=== PATIENT | male | born 1975 | race Caucasian/White ===

== ENCOUNTER 2017-03-14 22:21 | Observation (INO) ==
[2017-03-14] MEDS ORDERED: Aspirin 81 MG TAB.CHEW PO ONE (22:40)
--- NOTE | 2017-03-14 22:56 | Emergency Department Note ---
Disposition Clinical Impression: Chest pain Qualifiers: Chest pain type: precordial pain Qualified Code(s): R07.2 - Precordial pain Disposition: Left Against Medical Advice Condition: Undetermined General Adult HPI - General Chief complaint: ED Extremity Problem,Nontraumatic Stated complaint: L arm pain, chest pain earlier, now resolved Time Seen by Provider: 03/14/17 22:38 Source: patient, EMS Mode of arrival: private vehicle Limitations: no limitations Nursing Notes Reviewed: Yes Vital Signs Reviewed: Yes - History of Present Illness Pt Subjective Complaint: left arm and chest pain Onset (ago): day(s) ("Shoulder pain off and on for several days, gone now") Location: chest ("An episode of sharp mid sternal chest pain that lasted about 30-40 seconds, then just went away.") Radiation: non-radiation Pain Severity: moderate Pain Scale: 0 Quality: sharp Consistency: now resolved Improves with: nothing Worsens with: nothing Associated symptoms: Reports: denies other symptoms Treatments Prior to Arrival: none - Related Data Previous Rx's Medication Instructions Recorded OxyCODONE/APAP 5/325 [Percocet 1 each PO Q6HR PRN #20 tablet 10/16/16 5/325 MG] Allergies Allergy/AdvReac Type Severity Reaction Status Date / Time No Known Allergies Allergy Verified 07/30/16 09:04 All systems ED: reviewed and negative except as stated. Review of Systems: As Per HPI Constitutional: Denies: fever, chills Eyes: Denies: eye pain, eye discharge, vision change ENT ED: Reports: congestion ("Cold symptoms for about a week."). Denies: ear pain, throat pain Cardiovascular: Reports: as per HPI, chest pain (gone now). Denies: palpitations, dyspnea on exertion, orthopnea, edema, syncope Respiratory: Reports: cough (productive at times - for about a week), sputum production. Denies: dyspnea, wheezes, hemoptysis, stridor Gastrointestinal: Denies: abdominal pain, nausea, vomiting, diarrhea, constipation Musculoskeletal: Reports: back pain (chronic). Denies: neck pain, joint swelling, arthralgia, myalgia Integumentary: Denies: rash Neurological: Denies: headache, weakness, numbness, paresthesias, confusion Hematological/Lymphatic: Denies: easy bleeding, easy bruising, lymphadenopathy Past Medical History - Past Medical History Attestation: Yes The following information was validated with the patient. Source: patient Medical history: Reports: hypertension (not taking meds for it) Surgical history: Reports: herniorrhaphy, other Psychiatric history: Reports: anxiety - Social History Smoking Status: Current every day smoker Smokeless Tobacco Status: No Alcohol use: Reports: heavy, recent Drug use: Reports: none Physical Exam - General Limitations: no limitations General appearance: alert, in no apparent distress - Head Head exam: atraumatic, normocephalic, normal inspection - Eye Eye exam: Present: normal appearance, PERRL. Absent: scleral icterus, conjunctival injection, periorbital swelling - ENT ENT exam: mucous membranes moist - Neck Neck exam: Present: normal inspection, full ROM, trachea midline. Absent: tenderness, meningismus - Chest Chest inspection: Present: normal inspection, symmetric chest wall rise. Absent : tenderness - Respiratory Respiratory exam: Present: normal lung sounds bilaterally. Absent: respiratory distress, wheezes, stridor, accessory muscle use, prolonged expiratory phase - Cardiovascular Cardiovascular exam: Present: regular rate, normal rhythm, normal heart sounds - Abdominal Exam Abdominal exam: Present: soft, Non-Tender. Absent: distention, guarding, rigidity, mass, pulsatile mass - Extremities Exam Extremities exam: Present: normal inspection. Absent: pedal edema - Back Exam Back exam: Present: normal inspection - Neurological Exam Neurological exam: Present: alert, oriented X3, CN II-XII intact, normal gait - Psychiatric Psychiatric exam: Present: normal affect, normal mood - Skin Skin exam: Present: warm, dry, intact, normal color Course Course Narrative: Patient presents from home for evaluation of chest pain. It began while he was at rest, "smoking a cigarette". It lasted about 30-40 seconds then went away. He describes having pain in his shoulders for several days. No dyspnea, nausea, vomiting, fever, chills. He has had a cough and congestion ("cold symptoms") for about a week. He is sitting up, smiling, talking with family, very well appearing. He makes jokes about his BP only being high when he is at a hospital. He has not seen a PCP in over a decade. He has family hx of: Dad and brother of an ME - both at a young age. He has a normal exam and denies pain. He got up and ambulated to and from the restroom with no difficulties or pain. Chest pain orders are in. Aspirin has been ordered as well. EKG and CXR are normal. Labs are all normal. Patient is resting comfortably with no complaints of pain. I do not suspect PE in this patient. He has no risk factors for it, is not hypoxic or tachypneic, and he denies EDANGELO/SOB. He does not describe a pleuritic component to his chest pain. Pneumonia is also unlikely as he has no fever, no pleuritic pain and no hypoxia. Additionally, his CXR and labs are normal. Although he has risk factors for ACS, his chest pain of 30-40 second duration without exertion is atypical. His EKG and Troponin are normal. Nonetheless, he has a strong family history of ACS at a young age, is a long time smoker and has untreated HTN. His Heart Score is 3. Additionally, his family describes a "blotchy pink rash" that appeared on patient's left arm when he was experiencing the chest pain. This resolved prior to arrival and has not returned , but it caused the family great concern. For these reasons, we have recommended admission. Patient initially declined. Family was able to convince him to stay. Hospitalist paged. Hospitalist was able to return the call after an hour. He has accepted the patient. Patient learned that he would be moved to a floor bed. His children have gone home. He has decided to sign out AMA. He was given specific warnings / return precautions. His was not able to convince him to stay. She will be taking him home. Hospitalist has been updated. Vital Signs Temperature 98.3 F 03/14/17 22:23 Pulse Rate 101 03/14/17 22:23 Respiratory Rate 18 03/14/17 22:23 Blood Pressure 167/110 03/14/17 22:23 O2 Sat by Pulse Oximetry 99 03/14/17 22:23 Temperature 98.3 F 03/14/17 22:23 Pulse Rate 102 03/15/17 00:51 Respiratory Rate 16 03/15/17 00:51 Blood Pressure 131/82 03/15/17 00:51 O2 Sat by Pulse Oximetry 97 03/15/17 00:51 Oxygen Delivery Oxygen Delivery Room Air Medical Decision Making - Medical Records Medical records reviewed: Yes I reviewed the patient's medical records. - Lab Data Lab results reviewed: Yes I reviewed the patient's lab results. Lab results narrative: Laboratory Last Values WBC 8.7 K/mcL (4.3-11.1) 03/14/17 23:06 RBC 5.59 M/mcL (4.19-5.50) H 03/14/17 23:06 Hgb 16.1 g/dL (12.9-16.9) 03/14/17 23:06 Hct 48.4 % (37.5-50.1) 03/14/17 23:06 MCV 86.6 fL (83.0-100.0) 03/14/17 23:06 MCH 28.8 pg (28.0-33.3) 03/14/17 23:06 MCHC 33.3 g/dL (31.6-35.5) 03/14/17 23:06 RDW 13.2 % (11.5-14.5) 03/14/17 23:06 Plt Count 284 K/mcL (140-400) 03/14/17 23:06 MPV 9.1 fL (9.4-12.4) L 03/14/17 23:06 Immature Gran % 0.3 % (0-4) 03/14/17 23:06 Seg Neutrophils % 44.1 % 03/14/17 23:06 Lymphocytes % 40.7 % 03/14/17 23:06 Monocytes % 10.0 % 03/14/17 23:06 Eosinophils % 4.1 % 03/14/17 23:06 Basophils % 0.8 % 03/14/17 23:06 Neutrophils # 3.8 K/mcL (1.6-8.9) 03/14/17 23:06 Lymphocytes # 3.6 K/mcL (0.6-4.6) 03/14/17 23:06 Monocytes # 0.9 K/mcL (0.0-1.3) 03/14/17 23:06 Eosinophils # 0.4 K/mcL (0.0-0.6) 03/14/17 23:06 Basophils # 0.1 K/mcL (0.0-0.2) 03/14/17 23:06 Sodium 140 mEq/L (136-145) 03/14/17 23:06 Potassium 3.7 mEq/L (3.5-4.5) 03/14/17 23:06 Chloride 106 mEq/L (98-109) 03/14/17 23:06 Carbon Dioxide 24 mEq/L (19-29) 03/14/17 23:06 BUN 12 mg/dL (8-26) 03/14/17 23:06 Creatinine 0.96 mg/dL (0.72-1.25) 03/14/17 23:06 Est GFR ( Amer) > 60 (> 60) 03/14/17 23:06 Est GFR (Non-Af Amer) > 60 (> 60) 03/14/17 23:06 BUN/Creatinine Ratio 13 (6-26) 03/14/17 23:06 Glucose 99 mg/dL (70-99) 03/14/17 23:06 Calculated Osmolality 290 (280-300) 03/14/17 23:06 Calcium 9.8 mg/dL (8.6-10.8) 03/14/17 23:06 Total Bilirubin 0.4 mg/dL (0.2-1.2) 03/14/17 23:06 AST 17 Units/L (5-34) 03/14/17 23:06 ALT 19 Units/L (0-55) 03/14/17 23:06 Alkaline Phosphatase 73 Units/L (38-126) 03/14/17 23:06 Troponin I 0.00 ng/mL (0-0.03) 03/14/17 23:06 Serum Total Protein 8.1 g/dL (6.0-8.3) 03/14/17 23:06 Albumin 4.4 g/dL (3.5-5.0) 03/14/17 23:06 Globulin 3.7 g/dL (2.4-3.5) H 03/14/17 23:06 Albumin/Globulin Ratio 1.2 (1.1-2.2) 03/14/17 23:06 Lipase 16 Units/L (8-78) 03/14/17 23:06 Result diagrams: 03/14/17 23:06 03/14/17 23:06 Lab Results 03/14/17 03/14/17 03/14/17 Range/Units 23:06 23:06 23:06 WBC 8.7 (4.3-11.1) K/mcL RBC 5.59 H (4.19-5.50) M/mcL Hgb 16.1 (12.9-16.9) g/dL Hct 48.4 (37.5-50.1) % MCV 86.6 (83.0-100.0) fL MCH 28.8 (28.0-33.3) pg MCHC 33.3 (31.6-35.5) g/dL RDW 13.2 (11.5-14.5) % Plt Count 284 (140-400) K/mcL MPV 9.1 L (9.4-12.4) fL Immature Gran % 0.3 (0-4) % Seg Neutrophils % 44.1 % Lymphocytes % 40.7 % Monocytes % 10.0 % Eosinophils % 4.1 % Basophils % 0.8 % Neutrophils # 3.8 (1.6-8.9) K/mcL Lymphocytes # 3.6 (0.6-4.6) K/mcL Monocytes # 0.9 (0.0-1.3) K/mcL Eosinophils # 0.4 (0.0-0.6) K/mcL Basophils # 0.1 (0.0-0.2) K/mcL Sodium 140 (136-145) mEq/L Potassium 3.7 (3.5-4.5) mEq/L Chloride 106 (98-109) mEq/L Carbon Dioxide 24 (19-29) mEq/L BUN 12 (8-26) mg/dL Creatinine 0.96 (0.72-1.25) mg/dL Est GFR ( Amer) > 60 (> 60) Est GFR (Non-Af Amer) > 60 (> 60) BUN/Creatinine Ratio 13 (6-26) Glucose 99 (70-99) mg/dL Calculated Osmolality 290 (280-300) Calcium 9.8 (8.6-10.8) mg/dL Total Bilirubin 0.4 (0.2-1.2) mg/dL AST 17 (5-34) Units/L ALT 19 (0-55) Units/L Alkaline Phosphatase 73 (38-126) Units/L Troponin I 0.00 (0-0.03) ng/mL Serum Total Protein 8.1 (6.0-8.3) g/dL Albumin 4.4 (3.5-5.0) g/dL Globulin 3.7 H (2.4-3.5) g/dL Albumin/Globulin Ratio 1.2 (1.1-2.2) Lipase 16 (8-78) Units/L - Radiology Data Radiology results reviewed: Yes I reviewed the patient's radiology results. Chest X-Ray 03/14/17 22:40 IMPRESSION: No acute cardiopulmonary abnormality. D/ / Ray Don MD / Ray Don MD Interpreting Provider: Ray Don MD - EKG Data EKG #1 EKG attestation: Yes I reviewed and interpreted this EKG. EKG shows normal: sinus rhythm Rate: normal Rhythm: NSR [place]/QRS: normal Interpretation: no acute changes, normal EKG Attestation Statement - Attestation Attestation: I have personally performed a face to face evaluation on this patient. I have reviewed and agree with the care plan. History and Exam by me shows: Patient eating the chest pain. Substernal going down the left arm. Since resolved. No chronic history of an extensive family history including his dad and little brother who both of MIs. Exam shows him in no acute distress with clear lungs and heart regular rate and rhythm. Plan. Cardiac workup..
[2017-03-14 23:14] LABS: Basophils # 0.1 K/mcL (0.0-0.2); Basophils % 0.8 %; Eosinophils # 0.4 K/mcL (0.0-0.6); Eosinophils % 4.1 %; Hematocrit 48.4 % (37.5-50.1); Hemoglobin 16.1 g/dL (12.9-16.9); Immature Granulocytes % 0.3 % (0-4); Lymphocytes # 3.6 K/mcL (0.6-4.6); Lymphocytes % 40.7 %; Mean Corpuscular HGB Conc 33.3 g/dL (31.6-35.5); Mean Corpuscular Hemoglobin 28.8 pg (28.0-33.3); Mean Corpuscular Volume 86.6 fL (83.0-100.0); Mean Platelet Volume 9.1 fL (9.4-12.4); Monocytes # 0.9 K/mcL (0.0-1.3); Neutrophils # 3.8 K/mcL (1.6-8.9); Platelet Count 284 K/mcL (140-400); Red Blood Count 5.59 M/mcL (4.19-5.50); Red Cell Distribution Width 13.2 % (11.5-14.5); Segmented Neutrophils % 44.1 %
[2017-03-14 23:30] LABS: Alanine Aminotransferase 19 Units/L (0-55); Albumin 4.4 g/dL (3.5-5.0); Albumin/Globulin Ratio 1.2 (1.1-2.2); Alkaline Phosphatase 73 Units/L (38-126); Aspartate Amino Transferase 17 Units/L (5-34); BUN/Creatinine Ratio 13 (6-26); Bilirubin,Total 0.4 mg/dL (0.2-1.2); Blood Urea Nitrogen 12 mg/dL (8-26); Calcium 9.8 mg/dL (8.6-10.8); Carbon Dioxide 24 mEq/L (19-29); Chloride 106 mEq/L (98-109); Globulin 3.7 g/dL (2.4-3.5); Glucose 99 mg/dL (70-99); Lipase 16 Units/L (8-78); Osmolality,Calculated 290 (280-300); Potassium 3.7 mEq/L (3.5-4.5); Sodium 140 mEq/L (136-145); Total Protein 8.1 g/dL (6.0-8.3); eGFR For African Americans > 60 (> 60); eGFR For Non-African Americans > 60 (> 60)
--- NOTE | 2017-03-16 19:37 | Electrocardiograph Report ---
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
== END 2017-03-15 01:44 | disposition left against medical advice (07) ==
LOC: EMEROO 22:21 → 3BNU 22:21
PROVIDERS: ADMIT Internal Medicine; ATTEND Registered Nurse

== ENCOUNTER 2017-05-03 06:44 | Observation (INO) ==
--- NOTE | 2017-05-03 06:59 | Emergency Department Note ---
START Narrative - START START: Patient seen on arrival by EMS just prior to shift change and workup initiated. 41-year-old male with history of alcohol abuse presents with complaint that he awoke at 6 AM with palpitations. No chest pain. No prior history of atrial fibrillation. He presented in atrial fibrillation with RVR with a heart rate of 133. Vital signs stable. Patient awake alert and oriented. Orders entered. Patient will be turned over to the oncoming dayshift team.
[2017-05-03] MEDS ORDERED: dilTIAZem HCl 100 MG in D5% in Water 50 ML IVC SCH (07:00)
[2017-05-03] MEDS ORDERED: 0.9 % Sodium Chloride 1,000 ML IVC ONE (07:05)
--- NOTE | 2017-05-03 07:08 | Emergency Department Note ---
Disposition Clinical Impression: Tobacco abuse, Alcohol abuse Atrial fibrillation Qualifiers: Atrial fibrillation type: unspecified Qualified Code(s): I48.91 - Unspecified atrial fibrillation Disposition: Admitted As Inpatient Condition: Fair Referrals: NONE,PCP [Primary Care Provider] - Forms: ED Satisfaction Letter Time of Disposition: 08:14 Arrhythmia/Palpitations HPI - General Chief Complaint: ED Arrhythmia/Palpitations Stated Complaint: Heart racing Time Seen by Provider: 05/03/17 06:52 Source: patient Mode of arrival: ambulatory Limitations: no limitations Nursing Notes Reviewed: Yes Vital Signs Reviewed: Yes - History of Present Illness HPI Narrative: 41yom hx of drinking 10-12 beers daily, smoker, c/o palpitations and heart racing. States 2-3 days of URI symtoms cold and, cough and congestion, somewhat productive, no fevers, denies chest or abdominal pain. Patient denies history of arrhythmias, history of chest pain, no previous cardiac workup, no history of DVT, PE, recent recumbency, recent surgeries or prothrombotic state. Remote surgical history of an umbilical hernia repair. Pt Subjective Complaint: "heart racing" Onset (ago): day(s) Duration: intermittent Severity: mild Context: occurred during rest Associated symptoms: Denies: chest pain, shortness of breath, syncope, near- syncope, nausea, vomiting, anxiety, diaphoresis - Related Data Previous Rx's Medication Instructions Recorded OxyCODONE/APAP 5/325 [Percocet 1 each PO Q6HR PRN #20 tablet 10/16/16 5/325 MG] Allergies Allergy/AdvReac Type Severity Reaction Status Date / Time No Known Allergies Allergy Verified 07/30/16 09:04 All systems ED: reviewed and negative except as stated. Review of Systems: As Per HPI Constitutional: Denies: fever, chills Eyes: Denies: eye pain ENT ED: Denies: ear pain Cardiovascular: Reports: as per HPI, palpitations. Denies: chest pain, edema, syncope Respiratory: Denies: cough, dyspnea Gastrointestinal: Denies: abdominal pain, nausea Genitourinary: Denies: urgency Musculoskeletal: Denies: back pain Integumentary: Denies: rash Past Medical History - Past Medical History Attestation: Yes The following information was validated with the patient. Source: patient Medical history: Reports: no medical history, hypertension Surgical history: Reports: herniorrhaphy, other Psychiatric history: Reports: anxiety - Social History Smoking Status: Current every day smoker Smokeless Tobacco Status: No Alcohol use: Reports: heavy, recent Drug use: Reports: none Physical Exam - General General appearance: alert, in no apparent distress, obese - Eye Eye exam: Present: normal appearance, PERRL - ENT ENT exam: normal exam - Neck Neck exam: Present: normal inspection, full ROM - Chest Chest inspection: Present: normal inspection, symmetric chest wall rise - Respiratory Respiratory exam: Present: normal lung sounds bilaterally. Absent: respiratory distress - Cardiovascular Cardiovascular exam: Present: regular rate, tachycardia, irregular rhythm - Abdominal Exam Abdominal exam: Present: soft, scar (umbilical hernia repair). Absent: Non- Tender, guarding, rebound - Extremities Exam Extremities exam: Present: normal inspection, full ROM - Back Exam Back exam: Present: normal inspection, full ROM - Neurological Exam Neurological exam: Present: alert, oriented X3, CN II-XII intact - Psychiatric Psychiatric exam: Present: normal affect - Skin Skin exam: Present: warm, dry Course Course Narrative: 41-year-old male complaining of palpitations, EKG bedside shows a regular rhythm A. fib with RVR at rate of 133, patient has no chest pain, no abdominal pain, no acute distress, he does appear to be in atrial fibrillation. Plan is for chest pain workup, CBC BMP coagulation profile TSH, troponin, plan is to give him fluids, Cardizem bolus and drip. - Reevaluation(s) Reevaluation #1: R is now 80s to 90s and still irregular, intermittent runs of what looks like normal sinus rhythm on the cafeteria monitor his lab work was unremarkable, troponin negative, patient started on Cardizem bolus with drip, since his rate under control but still afib, aspirin and Lovenox given, patient into the hospitalist service. Dr Mcmillan pagedona and accepted patient for admisson Time: 08:13 Vital Signs Temperature 97.6 F 05/03/17 06:47 Pulse Rate 135 05/03/17 06:47 Respiratory Rate 16 05/03/17 06:47 Blood Pressure 160/124 05/03/17 06:47 O2 Sat by Pulse Oximetry 98 05/03/17 06:47 Temperature 97.6 F 05/03/17 06:47 Pulse Rate 120 05/03/17 06:54 Respiratory Rate 20 05/03/17 06:54 Blood Pressure 160/124 05/03/17 06:54 O2 Sat by Pulse Oximetry 100 05/03/17 07:13 Oxygen Delivery Oxygen Delivery Room Air Arrhythmia/Palpitations - Differential Diagnosis Differential Diagnosis: Likely: palpitations, anxiety, sinus tachycardia, ventricular premature beats - Medical Records Medical records reviewed: Yes I reviewed the patient's medical records. - Lab Data Lab results reviewed: Yes I reviewed the patient's lab results. Result diagrams: 05/03/17 07:09 05/03/17 07:09 Lab Results 05/03/17 05/03/17 05/03/17 Range/Units 07:09 07:09 07:09 WBC 6.0 (4.3-11.1) K/mcL RBC 5.42 (4.19-5.50) M/mcL Hgb 15.9 (12.9-16.9) g/dL Hct 47.0 (37.5-50.1) % MCV 86.7 (83.0-100.0) fL MCH 29.3 (28.0-33.3) pg MCHC 33.8 (31.6-35.5) g/dL RDW 13.3 (11.5-14.5) % Plt Count 303 (140-400) K/mcL MPV 9.2 L (9.4-12.4) fL Immature Gran % 0.3 (0-4) % Seg Neutrophils % 45.8 % Lymphocytes % 39.1 % Monocytes % 9.5 % Eosinophils % 4.3 % Basophils % 1.0 % Neutrophils # 2.7 (1.6-8.9) K/mcL Lymphocytes # 2.3 (0.6-4.6) K/mcL Monocytes # 0.6 (0.0-1.3) K/mcL Eosinophils # 0.3 (0.0-0.6) K/mcL Basophils # 0.1 (0.0-0.2) K/mcL PT 10.3 (9.4-12.1) Seconds INR 1.0 APTT 32.0 (26.0-36.0) Seconds Sodium 141 (136-145) mEq/L Potassium 3.8 (3.5-5.1) mEq/L Chloride 108 H (98-107) mEq/L Carbon Dioxide 22 L (23-29) mEq/L BUN 15 (6-20) mg/dL Creatinine 0.95 (0.70-1.30) mg/dL Est GFR ( Amer) > 60 (> 60) Est GFR (Non-Af Amer) > 60 (> 60) BUN/Creatinine Ratio 16 (6-26) Glucose 110 H (70-105) mg/dL Calculated Osmolality 293 (280-300) Calcium 9.7 (8.6-10.3) mg/dL Magnesium 1.8 (1.6-2.6) mg/dL Total Bilirubin (0.3-1.0) mg/dL Direct Bilirubin (0.0-0.2) mg/dL Indirect Bilirubin (0.0-1.2) mg/dL AST (13-39) Units/L ALT (7-52) Units/L Alkaline Phosphatase (34-104) Units/L Ammonia (16-53) mcmol/L Troponin I (< 0.04) ng/mL Serum Total Protein (6.4-8.9) g/dL Albumin (3.5-5.7) g/dL Globulin (2.4-3.5) g/dL Albumin/Globulin Ratio (1.1-2.2) Lipase (11-82) Units/L TSH 2.554 (0.340-5.600) mcIU/mL Ethyl Alcohol (0-10) mg/dL 05/03/17 05/03/17 05/03/17 Range/Units 07:09 07:09 07:09 WBC (4.3-11.1) K/mcL RBC (4.19-5.50) M/mcL Hgb (12.9-16.9) g/dL Hct (37.5-50.1) % MCV (83.0-100.0) fL MCH (28.0-33.3) pg MCHC (31.6-35.5) g/dL RDW (11.5-14.5) % Plt Count (140-400) K/mcL MPV (9.4-12.4) fL Immature Gran % (0-4) % Seg Neutrophils % % Lymphocytes % % Monocytes % % Eosinophils % % Basophils % % Neutrophils # (1.6-8.9) K/mcL Lymphocytes # (0.6-4.6) K/mcL Monocytes # (0.0-1.3) K/mcL Eosinophils # (0.0-0.6) K/mcL Basophils # (0.0-0.2) K/mcL PT (9.4-12.1) Seconds INR APTT (26.0-36.0) Seconds Sodium (136-145) mEq/L Potassium (3.5-5.1) mEq/L Chloride (98-107) mEq/L Carbon Dioxide (23-29) mEq/L BUN (6-20) mg/dL Creatinine (0.70-1.30) mg/dL Est GFR ( Amer) (> 60) Est GFR (Non-Af Amer) (> 60) BUN/Creatinine Ratio (6-26) Glucose (70-105) mg/dL Calculated Osmolality (280-300) Calcium (8.6-10.3) mg/dL Magnesium (1.6-2.6) mg/dL Total Bilirubin 0.7 (0.3-1.0) mg/dL Direct Bilirubin 0.1 (0.0-0.2) mg/dL Indirect Bilirubin 0.6 (0.0-1.2) mg/dL AST 14 (13-39) Units/L ALT 13 (7-52) Units/L Alkaline Phosphatase 67 (34-104) Units/L Ammonia 31 (16-53) mcmol/L Troponin I < 0.03 (< 0.04) ng/mL Serum Total Protein 7.2 (6.4-8.9) g/dL Albumin 4.5 (3.5-5.7) g/dL Globulin 2.7 (2.4-3.5) g/dL Albumin/Globulin Ratio 1.7 (1.1-2.2) Lipase 12 (11-82) Units/L TSH (0.340-5.600) mcIU/mL Ethyl Alcohol < 10 (0-10) mg/dL - Radiology Data Radiology results reviewed: Yes I reviewed the patient's radiology results. Chest X-Ray 05/03/17 06:52 IMPRESSION: No acute abnormality. D/ / Javier Alejandra MD / Javier Alejandra MD Interpreting Provider: Javier Alejandra MD - EKG Data EKG attestation: Yes I reviewed and interpreted this EKG. Rate: tachycardia (133 bpm QRS 97 QTc 354 no evidence of acute ischemic changes , left axis, no definitive P waves appears regular)
[2017-05-03 07:19] LABS: Basophils # 0.1 K/mcL (0.0-0.2); Eosinophils # 0.3 K/mcL (0.0-0.6); Eosinophils % 4.3 %; Hemoglobin 15.9 g/dL (12.9-16.9); Immature Granulocytes % 0.3 % (0-4); Lymphocytes # 2.3 K/mcL (0.6-4.6); Lymphocytes % 39.1 %; Mean Corpuscular HGB Conc 33.8 g/dL (31.6-35.5); Mean Corpuscular Hemoglobin 29.3 pg (28.0-33.3); Mean Corpuscular Volume 86.7 fL (83.0-100.0); Mean Platelet Volume 9.2 fL (9.4-12.4); Monocytes # 0.6 K/mcL (0.0-1.3); Monocytes % 9.5 %; Neutrophils # 2.7 K/mcL (1.6-8.9); Platelet Count 303 K/mcL (140-400); Red Blood Count 5.42 M/mcL (4.19-5.50); Red Cell Distribution Width 13.3 % (11.5-14.5); Segmented Neutrophils % 45.8 %
[2017-05-03 07:37] LABS: Prothrombin Time 10.3 Seconds (9.4-12.1)
[2017-05-03 07:43] LABS: BUN/Creatinine Ratio 16 (6-26); Blood Urea Nitrogen 15 mg/dL (6-20); Calcium 9.7 mg/dL (8.6-10.3); Carbon Dioxide 22 mEq/L (23-29); Chloride 108 mEq/L (98-107); Glucose 110 mg/dL (70-105); Magnesium 1.8 mg/dL (1.6-2.6); Osmolality,Calculated 293 (280-300); Potassium 3.8 mEq/L (3.5-5.1); Sodium 141 mEq/L (136-145); eGFR For African Americans > 60 (> 60); eGFR For Non-African Americans > 60 (> 60)
--- NOTE | 2017-05-03 07:43 | Emergency Department Note ---
START Narrative - START START: I examined this patient and my medical decision-making was reviewed with the Resident Physician. I agree with the documented findings, disposition and treatment plan as described except to the extent set forth below. 41-year-old male presented to the ER with A. fib and RVR. Patient is a known alcoholic hypertensive noncompliant patient. Patient was seen here in the past for chest pain and left AGAINST MEDICAL ADVICE. His last alcohol he states was . Denies chest pain or shortness of breath. The states he woke up with his heart racing. He was found to be in A. fib with RVR. His heart rate is coming down without any medications and just IV fluids down into the 90s. He is still in nature fibrillation. I feel he most likely needs to be admitted for further workup of this. We will give him some Lovenox for anticoagulation.
[2017-05-03 07:44] LABS: Alanine Aminotransferase 13 Units/L (7-52); Albumin 4.5 g/dL (3.5-5.7); Albumin/Globulin Ratio 1.7 (1.1-2.2); Alkaline Phosphatase 67 Units/L (34-104); Aspartate Amino Transferase 14 Units/L (13-39); Bilirubin,Direct 0.1 mg/dL (0.0-0.2); Bilirubin,Indirect 0.6 mg/dL (0.0-1.2); Bilirubin,Total 0.7 mg/dL (0.3-1.0); Globulin 2.7 g/dL (2.4-3.5); Lipase 12 Units/L (11-82); Total Protein 7.2 g/dL (6.4-8.9)
[2017-05-03 07:49] LABS: Thyroid Stimulating Hormone 2.554 mcIU/mL (0.340-5.600)
[2017-05-03] MEDS ORDERED: *HR* Enoxaparin 120 MG/0.8 ML SYRINGE SQ STA (08:12)
[2017-05-03] MEDS ORDERED: Aspirin 81 MG TAB.CHEW PO ONE (08:12)
[2017-05-03 08:15] LABS: Ethanol < 10 mg/dL (0-10)
[2017-05-03] MEDS ORDERED: *HR* LORazepam 2 MG/ML VIAL IVP PRN ×2 (08:39)
--- NOTE | 2017-05-03 08:47 | Internal Med History&Physical ---
Date of Encounter: 05/03/17 Time of Encounter: 08:43 Assessment and Plan (1) Atrial fibrillation Current visit: Yes Status: Acute New onset atrial fibrillation with a particular response. Rate currently controlled with minimal Cardizem requirements. Likely related to his heavy alcohol consumption which he has increased during the past 10 days. With regard to stroke prophylaxis patient ISAURA VASc score so far is zero. However will check echocardiogram hemoglobin A-1 C and monitor his blood pressure in hospital since he has not been to physicians in 20 years. It may be reasonable to give the patient aspirin for stroke prophylaxis. Appreciate cardiology input. We will start the patient aspirin and metoprolol. Qualifiers: Atrial fibrillation type: unspecified Qualified Code(s): I48.91 - Unspecified atrial fibrillation (2) Alcohol abuse Current visit: Yes Status: Chronic Patient drinks 12 beers every day. We will start the patient on CIWA protocol with IV Ativan is needed. Internal Medicine - H&P: HPI Chief complaint: palpitations History of present illness: Mr. Grimes is a 41 year old male patient with no known medical problems presents to the emergency room today with main complain of palpitations. Since he woke up this morning he started experiencing palpitations which he describes as rapid and irregular. He denies any other associated symptoms of shortness of breath chest pain lightheadedness sweating etc. he denies any prior similar symptoms except for occasionally skipped beats. Patient is a heavy alcohol drinker drinks about 12 beers every day. He mentioned that for the past 10 days he has increased his alcohol consumption. He had what appears like a recent bronchitis but this has improved. Patient denies any history of falls related to his alcohol consumption. Patient denies any history of G.I. bleeding. He is a heavy smoker has approximately 40 pack your smoking history. He has a family history of premature coronary artery disease where his father had CABG surgery in his 40s. Past Med Surg Social Fam HX - Past Medical History Medical history: no medical history, hypertension Psychiatric history: anxiety - Past Surgical History Surgical History: herniorrhaphy, other - Social History Smoking Status: Current every day smoker Smokeless Tobacco Status: No Alcohol use: heavy, recent Drug use: none - Family History Mother Living Status: Still Living Hx Family Respiratory Disorders: Yes (COPD) Hx Family Neurologic Disorders: Yes (brain aneurysm) Father Living Status: Hx Family Cardiac Disorders: Yes Brother Living Status: Internal Medicine - H&P: Meds OxyCODONE/APAP 5/325 [Percocet 5/325 MG] 1 each PO Q6HR PRN #20 tablet 10/16/16 [Rx] 3 Allergy/AdvReac Type Severity Reaction Status Date / Time No Known Allergies Allergy Verified 07/30/16 09:04 All Systems PM: A 10-system review of systems was performed and is negative for pertinent findings except as documented above in the HPI. Review of systems: 10 point review of systems is negative except for HPI - Constitutional Vitals: Temp Pulse Resp BP Pulse Ox 97.6 F 120 20 160/124 100 05/03/17 06:47 05/03/17 06:54 05/03/17 06:54 05/03/17 06:54 05/03/17 07:13 Exam: Gen.: patient is alert oriented times 3 not in distress. Cardiac: normal S1 S2 no additional sounds are murmurs. Chest: clear to auscultation. Abdomen: soft nontender nondistended. Lower extremity no swelling mucous membranes: moist Internal Med - H&P Results - Labs CBC & Chem 7: 05/03/17 07:09 05/03/17 07:09 Labs: Short CBC 05/03/17 Range/Units 07:09 WBC 6.0 (4.3-11.1) K/mcL Hgb 15.9 (12.9-16.9) g/dL Hct 47.0 (37.5-50.1) % Plt Count 303 (140-400) K/mcL Neutrophils # 2.7 (1.6-8.9) K/mcL BMP 05/03/17 07:09 Sodium 141 Potassium 3.8 Chloride 108 H Carbon Dioxide 22 L BUN 15 Creatinine 0.95 Glucose 110 H Calcium 9.7 Cardiac Enzymes 05/03/17 Range/Units 07:09 Troponin I < 0.03 (< 0.04) ng/mL Liver Function 05/03/17 Range/Units 07:09 Total Bilirubin 0.7 (0.3-1.0) mg/dL Direct Bilirubin 0.1 (0.0-0.2) mg/dL AST 14 (13-39) Units/L ALT 13 (7-52) Units/L Alkaline Phosphatase 67 (34-104) Units/L Albumin 4.5 (3.5-5.7) g/dL - Impressions ITS Impressions Chest X-Ray 05/03/17 06:52 IMPRESSION: No acute abnormality. D/ / Javier Alejandra MD / Javier Alejandra MD Interpreting Provider: Javier Alejandra MD
[2017-05-03] MEDS ORDERED: Magnesium Sulfate 1 GM in D5% in Water 100 ML IVPB ONE (08:50)
[2017-05-03] MEDS: Thiamine (B-1) 100 MG TABLET PO SCH (09:37)
[2017-05-03] MEDS: Folic Acid 1 MG TABLET PO SCH (09:37)
[2017-05-03] MEDS: Famotidine 20 MG TABLET PO SCH ×2 (11:26→22:13)
[2017-05-03] MEDS: Aspirin 81 MG TAB.CHEW PO SCH (11:26)
[2017-05-03] MEDS: Nicotine 21 MG PATCH.TD24 TD SCH (11:27)
--- NOTE | 2017-05-03 13:19 | Cardiology Consult Note ---
Date of Encounter: 05/03/17 Time of Encounter: 13:14 Assessment and Plan (1) Atrial fibrillation Current Visit: Yes Status: Acute New onset afib. He is symptomatic with his afib. On cardizem gtt and HR now in the 60's. On low dose at 2.5 mg /hr. Convert 120 mg daily. Afib likely due to ETOH abuse. Discussed with patient. ETOH cessation discussed. CHADS VASc =1 for HTN. Asa 81 mg daily recommended. Check TTE and TSH. Qualifiers: Atrial fibrillation type: unspecified Qualified Code(s): I48.91 - Unspecified atrial fibrillation (2) Alcohol abuse Current Visit: Yes Status: Chronic ETOH cessation discussed. States that he is ready to quit. (3) Hypertension Current Visit: Yes Status: Acute B/p 160/100 on admission. No previous history. B/p improved with IV cardizem. Qualifiers: Hypertension type: essential hypertension Qualified Code(s): I10 - Essential (primary) hypertension Discussion w patient/family: The assessment and plan as outlined above was discussed with the patient and/or family members who expressed understanding and agreement. All questions were answered. Thank you for involving us in the care of your patient. Please call with any questions. History of Present Illness Consult date: 05/03/17 Requesting physician: Berto Mcmillan Consult reason: new afib. Chief complaint: Palpitations History of present illness: Mr. Grimes is a 41 year old male with no significant past medical history presents with the c/o palpitations. He states " I felt like I was going to . " He presented to the ED and was found to be in atrial fibrillation with RVR HR 170. He was started on cardizem gtt and obtained rate control. He reports he still has mild palpitations. he drinks 12 beers a day. Says he self treats anxiety with alcohol. He had a 21 year old brother who with a heart problem and his father of a heart attack at age 58. He says he has bad anxiety since the time they . Past Med Surg Social Fam HX - Past Medical History Medical history: no medical history Psychiatric history: anxiety - Past Surgical History Surgical History: herniorrhaphy, other - Social History Smoking Status: Current every day smoker Packs per day: 1.5 Smokeless Tobacco Status: No Alcohol use: heavy, recent Drug use: none - Family History Mother Living Status: Still Living Hx Family Respiratory Disorders: Yes (COPD) Hx Family Neurologic Disorders: Yes (brain aneurysm) Father Living Status: Hx Family Cardiac Disorders: Yes Brother Living Status: Medications and Allergies No Known Home Drugs 05/03/17 [History] 3 Allergy/AdvReac Type Severity Reaction Status Date / Time No Known Allergies Allergy Verified 07/30/16 09:04 All Systems Review: A 10-system review of systems was performed and is negative for pertinent findings except as documented above in the HPI. Physical Examination Vital Signs, Last 4 Hours Temp Pulse Resp BP Pulse Ox 05/03/17 10:14 97.8 F 81 16 111/79 97 05/03/17 09:34 93 20 131/81 97 General: Conversant, No Apparent Distress HEENT: Atraumatic, Normocephaly, Mucus Membranes Moist Neck: No JVD, Normal carotid pulses Cardiac: Other (Irregular) Lungs: Normal Breath Sounds, No Wheeze, Rales, Rhonchi Neuro: Alert and responsive, No focal deficits noted Abdomen: Soft, Non-Tender Skin: No rashes noted on visualized skin Musculoskeletal: No Chest Wall Tenderness Extremities: No Clubbing, No Cyanosis, No Edema, Normal Pulses Results 05/03/17 07:09 05/03/17 07:09 - Imaging and Cardiology Echo: pending - EKG Interpretation EKG results cardiology: personally reviewed (Atrial fibrillation with RVR, no acute ST changes) Consult Discharge Plan - Plan Referrals: NONE,PCP [Primary Care Provider] -
[2017-05-04 05:41] LABS: Hemoglobin A1C 4.9 %
[2017-05-04 05:44] LABS: Basophils # 0.1 K/mcL (0.0-0.2); Basophils % 1.1 %; Eosinophils # 0.3 K/mcL (0.0-0.6); Eosinophils % 4.6 %; Hematocrit 43.3 % (37.5-50.1); Hemoglobin 14.4 g/dL (12.9-16.9); Immature Granulocytes % 0.3 % (0-4); Lymphocytes # 2.3 K/mcL (0.6-4.6); Lymphocytes % 34.7 %; Mean Corpuscular HGB Conc 33.3 g/dL (31.6-35.5); Mean Corpuscular Hemoglobin 29.5 pg (28.0-33.3); Mean Corpuscular Volume 88.7 fL (83.0-100.0); Mean Platelet Volume 9.6 fL (9.4-12.4); Monocytes # 0.6 K/mcL (0.0-1.3); Monocytes % 9.6 %; Neutrophils # 3.3 K/mcL (1.6-8.9); Platelet Count 278 K/mcL (140-400); Red Blood Count 4.88 M/mcL (4.19-5.50); Red Cell Distribution Width 13.3 % (11.5-14.5); Segmented Neutrophils % 49.7 %
[2017-05-04 05:51] LABS: BUN/Creatinine Ratio 12 (6-26); Blood Urea Nitrogen 12 mg/dL (6-20); Calcium 9.3 mg/dL (8.6-10.3); Carbon Dioxide 25 mEq/L (23-29); Chloride 108 mEq/L (98-107); Glucose 97 mg/dL (70-105); Magnesium 1.9 mg/dL (1.6-2.6); Osmolality,Calculated 286 (280-300); Potassium 4.2 mEq/L (3.5-5.1); Sodium 138 mEq/L (136-145); eGFR For African Americans > 60 (> 60); eGFR For Non-African Americans > 60 (> 60)
[2017-05-04 07:20] VITALS: BP 124/84
[2017-05-04] MEDS ORDERED: Diltiazem CD (24hr) 120 MG CAPSULE PO SCH (09:00)
[2017-05-04] MEDS: Aspirin 81 MG TAB.CHEW PO SCH (09:25)
[2017-05-04] MEDS: Thiamine (B-1) 100 MG TABLET PO SCH (09:25)
[2017-05-04] MEDS: Folic Acid 1 MG TABLET PO SCH (09:25)
[2017-05-04] MEDS: Nicotine 21 MG PATCH.TD24 TD SCH (09:25)
[2017-05-04] MEDS: Famotidine 20 MG TABLET PO SCH (09:25)
--- NOTE | 2017-05-04 10:23 | Cardiology Progress Note ---
Date of Encounter: 05/04/17 Time of Encounter: 10:20 Assessment and Plan (1) Atrial fibrillation Current Visit: Yes Status: Acute New onset afib. He is symptomatic with his afib. Converted to NSR on cardizem gtt. Afib likely due to ETOH abuse. Discussed with patient. ETOH cessation discussed. CHADS VASc =1 for HTN. Discussed with Dr. Henderson. AC with NOAC id recommended for stroke prevention. Aide sent to [facility] for bernal check. TTE -EF 55%-60%, moderate dilated LA. No significant valvular disease. TSH normal. Qualifiers: Atrial fibrillation type: unspecified Qualified Code(s): I48.91 - Unspecified atrial fibrillation (2) Alcohol abuse Current Visit: Yes Status: Chronic ETOH cessation discussed. States that he is ready to quit. (3) Hypertension Current Visit: Yes Status: Acute B/p 160/100 on admission. No previous history. B/p improved with cardizem and metoprolol. Qualifiers: Hypertension type: essential hypertension Qualified Code(s): I10 - Essential (primary) hypertension Discussion w patient/family: The assessment and plan as outlined above was discussed with the patient and/or family members who expressed understanding and agreement. All questions were answered. Thank you for involving us in the care of your patient. Please call with any questions. Subjective Principal diagnosis: afib, HTN Interval history: No new complaints. reports feeling better. Objective Vital Signs, Last 4 Hours Temp Pulse Resp BP Pulse Ox 05/04/17 09:48 91 05/04/17 07:18 97.6 F 67 18 124/84 98 General: Conversant, No Apparent Distress HEENT: Atraumatic, Normocephaly, Mucus Membranes Moist Neck: No JVD, Normal carotid pulses Cardiac: Reg Rate and Rhythm, Normal S1 and S2, No Murmur Lungs: Normal Breath Sounds, No Wheeze, Rales, Rhonchi Neuro: Alert and responsive, No focal deficits noted Abdomen: Soft, Non-Tender Skin: No rashes noted on visualized skin Musculoskeletal: No Chest Wall Tenderness Extremities: No Clubbing, No Cyanosis, No Edema, Normal Pulses Results 05/04/17 05:12 05/04/17 05:12 Lab Results 05/03/17 05/03/17 05/04/17 13:04 19:36 05:12 WBC 6.6 Hgb 14.4 D Hct 43.3 Plt Count 278 Sodium Potassium Chloride Carbon Dioxide BUN Creatinine Glucose Calcium Magnesium Troponin I < 0.03 < 0.03 05/04/17 05:12 WBC Hgb Hct Plt Count Sodium 138 Potassium 4.2 Chloride 108 H Carbon Dioxide 25 BUN 12 Creatinine 1.01 Glucose 97 Calcium 9.3 Magnesium 1.9 Troponin I Consult Discharge Plan - Plan Referrals: NONE,PCP [Primary Care Provider] - Prescriptions: Rivaroxaban [Xarelto] 20 mg PO DAILY #30 tablet
--- NOTE | 2017-05-04 12:36 | Discharge Summary ---
Date of Encounter: 05/04/17 Time of Encounter: 12:33 - Discharge Diagnosis (1) Atrial fibrillation Priority: Primary Status: Acute Qualifiers: Atrial fibrillation type: unspecified Qualified Code(s): I48.91 - Unspecified atrial fibrillation (2) Alcohol abuse Priority: Secondary Status: Chronic - Discharge Medications Prescriptions: Aspirin 81 mg PO DAILY #30 tab.chew Metoprolol [Lopressor] 12.5 mg PO BID #60 tablet Rivaroxaban [Xarelto] 20 mg PO DAILY #30 tablet Home Medications: Aspirin 81 mg PO DAILY #30 tab.chew 05/04/17 [Rx] Metoprolol [Lopressor] 12.5 mg PO BID #60 tablet 05/04/17 [Rx] Rivaroxaban [Xarelto] 20 mg PO DAILY #30 tablet 05/04/17 [Rx] Allergies/Adverse Reactions: 3 Allergy/AdvReac Type Severity Reaction Status Date / Time No Known Allergies Allergy Verified 07/30/16 09:04 Date of admission: 05/03/17 09:33 Primary care physician: PCP BALTAZAR Consults: cardiology: Dr. Henderson Discharging clinician: Ely Min Anticipated date of discharge: 05/04/17 - Patient Status Disposition: Home, Self-Care Condition: Good Functional capacity at discharge: independent ambulation Overall status at discharge: patient is back to baseline - Discharge Instructions Follow Up With: BALTAZAR,PCP [Primary Care Provider] - Additional Instructions: Please follow up with your primary care physician within five days after your discharge from the hospital. 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 Take these medications as prescribed. Your risk of bleeding is increased with Xarelto, if you sustain a fall or have an acute bleed, please seek medical help immediately. - Diet and Activity Activity: increase activity as tolerated Diet: low salt diet Hospital course: Mr. Grimes is a 41 year old male with no known PMH admitted for new onset Afib with RVR. He was noted to have elevated BP in addition to the Afib with rVR. He was started on cardizem gtt and cardiology was consulted. Pt's was titrated off the cardizem gtt and started on metoprolol BID. Pt's BP and HR remained controlled with BB. He was started on aspirin and xarelto for anticoagulation. At this time pt is medically stable for discharge with outpatient follow up with cardiology. - Time Spent with Patient Total time spent providing and/or coordinating discharge services: Less than 30 minutes - Constitutional Vitals: Temp Pulse Resp BP Pulse Ox 97.6 F 67 18 124/84 91 05/04/17 07:18 05/04/17 07:18 05/04/17 07:18 05/04/17 07:18 05/04/17 09:48 General appearance: Present: A&O X 3, pleasant, no acute distress, obese, answers questions appropriately - Head Head exam: Present: atraumatic, normocephalic - Eye Eye exam: Present: conjuntiva pink, sclera anicteric - Respiratory Respiratory exam: Present: CTAB. Absent: accessory muscle use, rales, rhonchi, wheezes - Cardiovascular Cardiovascular exam: Present: irregular rhythm, +S1, +S2. Absent: diastolic murmur, systolic murmur - GI/Abdominal GI/Abdominal exam: Present: normal bowel sounds, soft, no peritoneal signs. Absent: distended, tenderness - Extremities Exam Extremities exam: Present: warm, radial pulses palpable and symmetrical. Absent : calf tenderness, cyanotic, pedal edema - Neurological Exam Neurological exam: Present: alert, oriented X3 - Psychiatric Psychiatric exam: Present: normal affect, normal mood
--- NOTE | 2017-05-05 10:14 | Electrocardiograph Report ---
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
--- NOTE | 2017-05-05 10:15 | Electrocardiograph Report ---
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
== END 2017-05-04 15:17 | disposition home or self-care (01) ==
LOC: 2NENU 06:44 → EMEROO 06:44 → 2NENU 10:12
PROVIDERS: ADMIT Hospitalist; ATTEND Internal Medicine